=== PATIENT | female | born 1970 | race Caucasian/White ===

== ENCOUNTER 2016-10-02 20:41 | Emergency (ER) | payer OTHER ==
--- NOTE | ~2016-10-02 | CR72 ---
[facility] A Service of [facility] RADIOLOGY TEXT RESULTS PATIENT: SCOOTER BRITO LOCATION: [facility] : [birth year] UNIT #: [id number] AGE: [address]: Brice Hilton MD SEX: F ORDER DR: [id number] [facility] [address] [place], [place] [address] [id number] E MR#: [id number] Acc #: [id number] NAME: SCOOTER BRITO : 1970 SEX: F STUDY DATE/TIME: 10/02/2016 20:38 UNIT: [facility] ROOM: STUDY DESCRIPTION: CR Chest Single View Portable Attending Physician: Brice Hilton M.D. Ordering Physician: Brice Hilton M.D. Primary Care Physician: Primary Care Physician No MEDICAL IMAGING REPORT This report is preliminary unless electronic signature is present EXAM Portable chest. HISTORY Shortness of air, heart palpitations and weakness for 2 years, worse today. FINDINGS The cardiac size and pulmonary vascularity are normal. No infiltrates or effusions. Mild hyperinflation of both lungs. IMPRESSION No acute findings and no active disease. Dictated by... Angel Traore M.D. THIS IS AN ELECTRONICALLY VERIFIED REPORT Angel Traore M.D. at 10/03/2016 8:02 PM SARIKA/kylah TD: 10/02/2016 23:28 JOB #: [id number] MEDICAL IMAGING REPORT Page 1 of 1 COPY
--- NOTE | ~2016-10-02 | EKG ---
PATIENT: SCOOTER BRITO UNIT #: [id number] Ventricular Rate: 84 BPM Atrial Rate: 84 BPM P-R Interval: 176 ms QRS Duration: 72 ms Q-T Interval: 408 ms QTC Calculation(Bezet): 482 ms P [place]: 62 degrees Calculated R [place]: 51 degrees Calculated T [place]: 58 degrees Diagnosis Line: Normal sinus rhythm Diagnosis Line: Normal ECG Diagnosis Line: No previous ECGs available Diagnosis Line: Confirmed by MARTHA DIAZ MD ([id number]) on Diagnosis Line: 10/03/2016 7:17:55 AM INTERPRETING MD: GHASSAN
[2016-10-02 20:37] LABS: BASOPHIL# 0.1 X10e3 (0-0.3); BASOPHIL% 1.4 % (0-2.5); EOSINOPHIL# 0.4 X10e3 (0-0.7); EOSINOPHIL% 5.4 % (0.0-7.0); HEMATOCRIT 35.8 % (35.0-45.0); HEMOGLOBIN 11.5 gm/dL (12.0-16.0); LYMPHOCYTE# 2.5 X10e3 (1.0-3.5); LYMPHOCYTE% 34.5 % (17.0-45.0); MEAN CELL VOLUME 94.5 FL (83-96); MEAN CORPUSCULAR HEMOGLOBIN 30.2 PG (28-34); MEAN PLATELET VOLUME 7.4 FL (6.5-11.5); MONOCYTE# 0.6 X10e3 (0-1.0); MONOCYTE% 8.6 % (3.0-12.0); NEUTROPHIL# 3.6 X10e3 (1.5-7.1); NEUTROPHIL% 50.1 % (40-75); PLATELET COUNT 239 X10e3 (140-420); RED BLOOD COUNT 3.79 X10e (3.90-5.30); RED CELL DISTRIBUTION WIDTH 16.9 % (11.0-15.5); WHITE BLOOD COUNT 7.3 X10e3 (4.0-10.5)
[2016-10-02 20:40] LABS: DIFF IND NO
[2016-10-02 20:46] LABS: POC - CKMB <1.0 ng/mL (0.0-7.9); POC - TROPONIN <0.05 ng/mL (<=0.05)
[2016-10-02 20:53] LABS: URINE SOURCE CLEAN CATCH
[2016-10-02 20:59] LABS: ALBUMIN SERUM 4.1 g/dL (3.5-5.0); ALKALINE PHOSPHATASE 66 U/L (32-92); ALT (SGPT) 22 U/L (10-40); AST (SGOT) 24 U/L (10-42); BILIRUBIN,TOTAL 0.3 mg/dL (0.2-2.0); BLOOD UREA NITROGEN 12 mg/dL (9-23); CALCIUM SERUM 9.3 mg/dL (8.4-10.2); CARBON DIOXIDE 25 mmol/L (22-31); CHLORIDE 106 mmol/L (100-111); GLOM FILT RATE Estimated 67.5 mL/min (>60); GLUCOSE FASTING 80 mg/dL (70-110); MAGNESIUM 2.1 mg/dL (1.6-3.0); POTASSIUM 3.5 mmol/L (3.5-5.1); PROTEIN TOTAL SERUM 7.2 g/dL (6.0-8.3); SODIUM 139 mmol/L (135-145)
[2016-10-02 21:00] LABS: URINE APPEARANCE CLEAR; URINE BILIRUBIN NEG (NEG); URINE BLOOD NEG (NEG); URINE COLOR DK YELLOW; URINE GLUCOSE NEG (NEG); URINE KETONE NEG (NEG); URINE LEUKOCYTE ESTERASE NEG (NEG); URINE NITRATE NEG (NEG); URINE PROTEIN NEG (NEG); URINE SPECIFIC GRAVITY 1.021 (1.003-1.035); URINE UROBILINOGEN 0.2 MG/DL (NEG)
[2016-10-02 21:00] LABS: BILIRUBIN, DIRECT <0.1 mg/dL (0.0-0.2); BILIRUBIN,INDIRECT 0.2 mg/dL (0.0-0.9)
[2016-10-02 21:04] LABS: CULTURE INDICATED? NO
[2016-10-02 21:08] LABS: AMPHETAMINE NEG (NEG); BARBITURATES NEG (NEG); BENZODIAZEPINES NEG (NEG); COCAINE NEG (NEG); MARIJUANA NEG (NEG); OPIATES NEG (NEG); TRICYCLIC ANTIDEPRESSANTS NEG (NEG); U METHADONE NEG (NEG)
== END 2016-10-02 21:42 | disposition home or self-care (01) ==
LOC: CED 20:41
PROVIDERS: Emergency Medicine
DX: R00.2 Palpitations (principal); J44.9 Chronic obstructive pulmonary disease, unspecified; K75.9 Inflammatory liver disease, unspecified; K74.60 Unspecified cirrhosis of liver; I50.9 Heart failure, unspecified; Z88.8 Allergy status to other drugs, medicaments and biological substances
CPT/HCPCS: 36415; 71010; 80048; 80076; 80307; 81003; 82553; 83735; 84443; 84484; 84703; 85025; 93005; 99283

== ENCOUNTER 2016-11-17 13:00 | Inpatient (IN) | payer OTHER ==
--- NOTE | ~2016-11-17 | PN ---
Unit #: [id number] #: [id number] Patient: SCOOTER BRITO [id number] [facility] [address] [place] [address] [id number] I MR#: [id number] NAME: SCOOTER BRITO ROOM: P208 Age: 46 Sex: F Admission Date: 11/17/2016 : 1970 Attending Physician: Jose Luis Hart M.D. Admitting Physician: Jose Luis Hart M.D. Primary Care Physician: Primary Care Physician Svitlana PACK NOTES DATE 11/22/2016 DISCUSSION Ms. Brito is a 46-year-old white female who was seen today and chart was reviewed and case was discussed with the staff. She has been anxious, withdrawn and rather seclusive to herself. Meanwhile, she has been cooperative with treatment recommendations. She has been taking the medications and tolerating them fairly well with no reported side effects. MENTAL STATUS EXAMINATION Middle-aged white female who was casually dressed with fair personal hygiene, appears to be in no acute distress or discomfort. She was awake and alert on interaction with intact orientation. Her mood was anxious with congruent affect. She denies any suicidal or homicidal ideations. Her insight and judgement remains slightly impaired. TREATMENT PLAN We will continue her on her current treatment protocol. We will monitor her response and make further adjustments as needed. Dictated by... Bonnie Griffin/zee TD: 11/23/2016 00:51 JOB #: [id number] [facility] PROGRESS NOTES Page 1 of 1 X Jose Luis Hart MD PROGRESS NOTE
--- NOTE | ~2016-11-17 | PN ---
Unit #: [id number] #: [id number] Patient: SCOOTER BRITO [id number] [facility] [address] [place] [address] [id number] I MR#: [id number] NAME: SCOOTER BRITO ROOM: P208 Age: 46 Sex: F Admission Date: 11/17/2016 : 1970 Attending Physician: Jose Luis Hart M.D. Admitting Physician: Jose Luis Hart M.D. Primary Care Physician: Primary Care Physician Svitlana PACK NOTES DATE OF SERVICE 11/17/2016 DISCUSSION Ms. Brito is a 46-year-old white female with mood disorder who was seen today. Chart was reviewed and case was discussed with the staff. She has been anxious, withdrawn, depressed, and rather seclusive to herself. Meanwhile, she has not shown any agitation or aggression and rather has been cooperative with treatment recommendations and reports that she has been started on Prozac in the past and would like to get back on that medication but that she also needs mood stabilizer to help with her anger and aggression. MENTAL STATUS EXAMINATION Middle-aged white female who is casually dressed with fair personal hygiene, appears to be in no acute distress or discomfort. She was awake and alert on interaction with intact orientation. Her mood is anxious with a congruent affect. She denies any suicidal or homicidal ideations. Her insight and judgment remain slightly impaired. TREATMENT PLAN 1. We will continue her on her current medications and treatment protocol. We will monitor her response to the medications and make further adjustments as needed. 2. We will continue to follow up. Dictated by... Bonnie Griffin/yarely TD: 11/19/2016 07:04 JOB #: [id number] Unit #: [id number] #: [id number] Patient: SCOOTER BRITO HARMANJERRY PROGRESS NOTES Page 1 of 1 X Jose Luis Hart MD PROGRESS NOTE
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
--- NOTE | ~2016-11-17 | DS ---
Unit #: [id number] #: [id number] Patient: [facility]CO[facility]ER BRITO [id number] [facility] [address] [place] [address] [id number] I MR#: [id number] NAME: SCOOTER BRITO ROOM: P208 Age: 46 Sex: F Admission Date: 11/17/2016 : 1970 Discharge Date: 11/23/2016 Attending Physician: Jose Luis Hart M.D. Primary Care Physician: Primary Care Physician No DISCHARGE SUMMARY IDENTIFYING DATA Ms. Brito is a 46-year-old white female who was self-referred to the hospital on a voluntary basis. DISCHARGE DIAGNOSES Psychiatric: Alcohol dependence, moderate and acute withdrawals; bipolar disorder, most recent episode depressed, recurrent, moderate, without psychotic features. Medical: Hepatitis C, congestive heart failure, supraventricular tachycardia, history of lupus. Stressors: Moderate psychosocial stressors. HISTORY OF PRESENT ILLNESS Please see initial psychiatric evaluation for details. PAST PSYCHIATRIC HISTORY Please see initial psychiatric evaluation for details. PAST MEDICAL HISTORY Please see initial psychiatric evaluation for details. HOSPITAL COURSE The patient was admitted to the adult psychiatric unit at [facility] and was oriented to the hospital environment. Routine p.r.n. medications were initiated, and she was started on alcohol detox protocol and was closely monitored. However, she was complaining of persistent mood swings, anger, aggression, and depressive symptoms and as such, mood stabilizers and antidepressants were adjusted and she was closely monitored. She was taking the medications regularly and was tolerating them fairly well and was able to show a decent therapeutic response with improvement in depression and anxiety and was denying any further suicidal ideations, intent, or plan and was not seen to be a danger to self or anyone else and was willing to continue treatment on an outpatient basis, and as such, it was decided that she will be discharged home and will continue treatment on an outpatient basis. DISCHARGE MEDICATIONS Wellbutrin XL 150 mg in the morning for depression, Seroquel 50 mg at bedtime for bipolar, Depakote 500 mg b.i.d. for bipolar, and Prozac 20 mg a day for bipolar. DISCHARGE CONDITION Stable. Unit #: [id number] #: [id number] Patient: SCOOTER BRITO PROGNOSIS Fair. Dictated by... IrfBonnie Duque/leila TD: 11/23/2016 06:43 JOB #: [id number] DISCHARGE SUMMARY Page 1 of 1 X Jose Luis Hart MD DISCHARGE SUMMARY
--- NOTE | ~2016-11-17 | PN ---
Unit #: [id number] #: [id number] Patient: SCOOTER BRITO [id number] [facility] [address] [place] [address] [id number] I MR#: [id number] NAME: SCOOTER BRITO ROOM: P208 Age: 46 Sex: F Admission Date: 11/17/2016 : 1970 Attending Physician: Jose Luis Hart M.D. Admitting Physician: Jose Luis Hart M.D. Primary Care Physician: Primary Care Physician Svitlana PACK NOTES DATE November 20, 2016 DISCUSSION Ms. Brito is a 26-year-old white female, with mood disorder, who was seen today and chart was reviewed and the case was discussed with the staff. The patient has been anxious, withdrawn, and rather seclusive to herself. Meanwhile, she has been cooperative with the treatment recommendations and she has been taking the medications and tolerating them fairly well. MENTAL STATUS EXAMINATION Middle-aged white female, who was casually dressed with fair personal hygiene and appears to be in no acute distress or discomfort. The patient was awake and alert on interaction with intact orientation. Her mood is anxious with a congruent affect. The patient denies any suicidal or homicidal ideations. Her insight and judgment remain slightly impaired. TREATMENT PLAN 1. We will continue her on her current treatment protocol, and will monitor her response, and make further adjustments as needed. 2. We will continue to followup. Dictated by... Bonnie Griffin/malathi TD: 11/21/2016 11:08 JOB #: [id number] [facility] PROGRESS NOTES Page 1 of 1 X Jose Luis Hart MD PROGRESS NOTE
--- NOTE | ~2016-11-17 | HP ---
Unit #: [id number] #: [id number] Patient: CINTHYA BRITO [id number] [place] [address] [id number] I MR#: [id number] NAME: CINTHYA BRITO ROOM: P208 Age: 46 Sex: F Admission Date: 11/17/2016 : 1970 Attending Physician: Jose Luis Hart M.D. Admitting Physician: Jose Luis Hart M.D. Primary Care Physician: Primary Care Physician No HISTORY AND PHYSICAL HISTORY OF PRESENT ILLNESS Cinthya is a 46 year old admitted to [address] [place] [address] because of her abuse of alcohol. PAST MEDICAL HISTORY 1. Long history of alcohol abuse. 2. History of withdrawal seizures. PAST SURGICAL HISTORY 1. Cervical disc. 2. Sinus. 3. x1. ALLERGIES Vistaril, Thorazine, Celebrex. SOCIAL HISTORY She does not smoke. Drinks up to a half gallon of vodka on a daily basis and admits to using marijuana. FAMILY HISTORY Medically noncontributory. REVIEW OF SYSTEMS CONSTITUTIONAL: No fever or chills. HEENT: Denies any sore throat, ear pain or runny nose. CARDIOVASCULAR: Denies chest pain, irregular heart rhythm or palpitations. CHEST: Denies shortness of breath or cough. No hemoptysis. GASTROINTESTINAL: Denies nausea, vomiting, diarrhea or chronic constipation. ENDOCRINE: Denies history of increased thirst or urination. No recent significant weight loss or gain. GENITOURINARY: Denies dysuria, frequency, or hematuria. SKIN: Denies any rashes. HEMATOLOGIC: Denies history of increased bleeding or bruising. MUSCULOSKELETAL: Denies any hot, swollen joints. No generalized muscle pain. NEUROLOGIC: Denies problems with vision or speech. No frequent, severe headaches. No numbness, tingling or weakness in any extremities. Denies loss of bladder or bowel control. CURRENT MEDICATIONS 1. Detox protocol. Unit #: [id number] #: [id number] Patient: CINTHYA BRITO 2. Prozac 20 mg daily. 3. Depakote 500 mg b.i.d. PHYSICAL EXAMINATION GENERAL: Alert, well-nourished, in no apparent distress. VITAL SIGNS: Blood pressure 115/80, heart rate 80, respirations 16, temperature 98.6. WEIGHT: 155. HEIGHT: 5 feet 10 inches. SKIN: Warm and dry without rash or lesion. HEENT: Normocephalic. TMs not viewed. Oral and nasal passages clear. Conjunctivae clear. PERRLA. EOMs intact. NECK: Supple without lymphadenopathy or thyromegaly. HEART: Regular rate and rhythm without murmur. LUNGS: Clear. ABDOMEN: Soft, nontender. : Not done. EXTREMITIES: No evidence of cyanosis, clubbing or edema. Moves all without focal deficit. NEUROLOGICAL: Grossly within normal limits. Cranial Nerves: II: Visual brooks are intact. III, IV AND : Extraocular movements are intact. Pupils are equal, round and reactive to light. V: Facial sensation is grossly normal. VII: Facial movements and expression are normal. VIII: Auditory acuity grossly intact. IX, X: Uvula is midline. Phonation is normal. XI: Patient shrugs shoulders and turns head normally. XII: Tongue protrudes in the midline. Sensory and Motor Function: Sensory and motor sensation is grossly normal. Motor: moves all extremities well. Coordination: Gait is normal. Deep Tendon Reflexes: Intact. IMPRESSION Psychiatric admission. RECOMMENDATIONS PSYCHIATRIC: Per psychiatrist. MEDICAL: See no contraindications to participate in facility's activities. MEDICAL PROGNOSIS Good. MEDICAL CONDITION Stable. Dictated by... Agnieszka JosephALaureen-Vanessa. for Bonnie Weaver/escobar TD: 11/18/2016 18:09 JOB #: [id number] Unit #: [id number] #: [id number] Patient: CINTHYA BRITO HISTORY AND PHYSICAL Page 1 of 1 X Aide Wood HISTORY AND PHYSICAL
--- NOTE | ~2016-11-17 | PN ---
Unit #: [id number] #: [id number] Patient: SCOOTER BRITO [id number] [facility] [address] [place] [address] [id number] I MR#: [id number] NAME: SCOOTER BRITO ROOM: P208 Age: 46 Sex: F Admission Date: 11/17/2016 : 1970 Attending Physician: Jose Luis Hart M.D. Admitting Physician: Jose Luis Hart M.D. Primary Care Physician: Primary Care Physician Svitlana PACK NOTES DATE OF SERVICE: 11/21/2016 SUBJECTIVE Ms. Brito is a 46-year-old white female who was seen today and chart was reviewed and case was discussed with the staff. She remains anxious, withdrawn, and rather seclusive to herself. Meanwhile, she has been cooperative with treatment recommendations and has been taking the medications and tolerating them fairly well with no reported side effects. MENTAL STATUS EXAMINATION Middle aged white female, who is casually dressed with fair personal hygiene, appears to be in no acute distress or discomfort. She was awake and alert on interaction with intact orientation. Her mood was anxious. Her insight and judgment remained slightly impaired. TREATMENT PLAN 1. We will continue her on her current medications and treatment protocol. We will monitor her response to the medications and make further adjustments as needed. 2. We will continue to follow up. Dictated by... Bonnie Griffin/leila TD: 11/21/2016 15:30 JOB #: [id number] [facility] PROGRESS NOTES Page 1 of 1 X Jose Luis Hart MD PROGRESS NOTE
[2016-11-18 09:36] LABS: BASOPHIL# 0.1 X10e3 (0-0.3); BASOPHIL% 1.5 % (0-2.5); EOSINOPHIL# 0.1 X10e3 (0-0.7); EOSINOPHIL% 1.3 % (0.0-7.0); HEMATOCRIT 38.3 % (35.0-45.0); HEMOGLOBIN 12.5 gm/dL (12.0-16.0); LYMPHOCYTE# 1.3 X10e3 (1.0-3.5); LYMPHOCYTE% 31.5 % (17.0-45.0); MEAN CELL VOLUME 99.2 FL (83-96); MEAN CORPUSCULAR HEMOGLOBIN 32.2 PG (28-34); MEAN CORPUSCULAR HGB CONC 32.5 g/dL (30-36); MEAN PLATELET VOLUME 7.2 FL (6.5-11.5); MONOCYTE# 0.8 X10e3 (0-1.0); MONOCYTE% 17.9 % (3.0-12.0); NEUTROPHIL% 47.8 % (40-75); PLATELET COUNT 304 X10e3 (140-420); RED BLOOD COUNT 3.87 X10e (3.90-5.30); RED CELL DISTRIBUTION WIDTH 20.3 % (11.0-15.5); WHITE BLOOD COUNT 4.2 X10e3 (4.0-10.5)
[2016-11-18 09:39] LABS: DIFF IND NO
[2016-11-18 09:50] LABS: URINE APPEARANCE CLOUDY; URINE BILIRUBIN NEG (NEG); URINE BLOOD NEG (NEG); URINE COLOR YELLOW; URINE GLUCOSE NEG (NEG); URINE KETONE NEG (NEG); URINE LEUKOCYTE ESTERASE 2+ (NEG); URINE NITRATE POS (NEG); URINE PROTEIN NEG (NEG); URINE SPECIFIC GRAVITY 1.019 (1.003-1.035)
[2016-11-18 09:58] LABS: URBCS1 AUWI 0-2 /[HPF] (0-2); URINE BACTERIA AUWI 4+ (NEGATIVE); URINE SQUAMOUS EPITHELIAL CELL OCC /[HPF]; UWBCS1 AUWI 25-50 (0-5)
[2016-11-18 10:54] LABS: AMPHETAMINE POS (NEG); BARBITURATES NEG (NEG); BENZODIAZEPINES POS (NEG); COCAINE NEG (NEG); MARIJUANA POS (NEG); OPIATES NEG (NEG); TRICYCLIC ANTIDEPRESSANTS NEG (NEG); U METHADONE NEG (NEG)
[2016-11-18 12:37] LABS: ALBUMIN SERUM 4.2 g/dL (3.5-5.0); BILIRUBIN,TOTAL 1.1 mg/dL (0.2-2.0); BUN/CREATININE RATIO 16.25; CALCIUM SERUM 9.2 mg/dL (8.4-10.2); CREATININE SERUM 0.8 mg/dL (0.6-1.4); GLOM FILT RATE Estimated 88.5 mL/min (>60); POTASSIUM 4.1 mmol/L (3.5-5.1); PROTEIN TOTAL SERUM 7.3 g/dL (6.0-8.3)
[2016-11-24 13:35] LABS: HA AB IGM (HEPPAN) Nonreactive (()); HB CORE AB IGM (HEPPAN) Nonreactive (Nonreactive); HB S AG (HEPPAN) Nonreactive (Nonreactive); HEP C AB (HEPPAN) Reactive (Nonreactive)
== END 2016-11-23 10:25 | disposition home or self-care (01) | DRG 897 ==
LOC: P2S 16:09 → POF 16:09 → P2S 16:19
PROVIDERS: Psychiatry & Neurology Psychiatry
PROC: HZ2ZZZZ Detoxification Services for Substance Abuse Treatment (ICD-10-PCS; principal; 2016-11-18)
DX: F10.10 Alcohol abuse, uncomplicated (principal)
CPT/HCPCS: 80053; 80074; 80307; 81003; 85025; 86592; 87522; 87806

== ENCOUNTER 2017-02-11 11:48 | Emergency (ER) | payer OTHER ==
[~2017-02-11] VITALS: Ht 177.8 cm; Wt 73.9 kg
--- NOTE | ~2017-02-11 | US140 ---
[facility] A Service of [facility] RADIOLOGY TEXT RESULTS PATIENT: SCOOTER BRITO LOCATION: [facility] : [birth year] UNIT #: [id number] AGE: [address]: Franck Pedraza MD SEX: F ORDER DR: [id number] [facility] [address] [place], [place] [address] [id number] MR#: [id number] Acc #: [id number] NAME: SCOOTER BRITO : 1970 SEX: F STUDY DATE/TIME: 02/11/2017 13:26 UNIT: [facility] ROOM: STUDY DESCRIPTION: [facility] [employer] Attending Physician: Franck Pedraza M.D. Ordering Physician: Franck Pedraza M.D. Primary Care Physician: Primary Care Physician No MEDICAL IMAGING REPORT This report is preliminary unless electronic signature is present EXAM Left upper extremity venous duplex 02/11/2017 HISTORY Left arm pain and edema beginning one day ago after surgery. Evaluate for deep vein thrombosis. FINDINGS García-scale images of the left upper extremity were obtained as well as Doppler waveform spectral analysis and color flow duplex imaging. There is normal blood flow and compressibility in the left internal jugular vein as well as the left subclavian, axillary, brachial, cephalic and basilic veins. There is no evidence of deep vein thrombosis in the left upper extremity. IMPRESSION Negative left upper extremity venous duplex with no evidence of deep vein thrombosis. Dictated by... Husam Boswell M.D. THIS IS AN ELECTRONICALLY VERIFIED REPORT Husam Boswell M.D. at 02/13/2017 6:39 AM MARCIAL/shikha TD: 02/12/2017 00:14 JOB #: [id number] MEDICAL IMAGING REPORT [facility] A Service [facility] RADIOLOGY TEXT RESULTS PATIENT: SCOOTER BRITO LOCATION: [facility] : [birth year] UNIT #: [id number] AGE: [address]: Franck Pedraza MD SEX: F ORDER DR: Page 1 of 1 COPY
== END 2017-02-11 14:17 | disposition home or self-care (01) ==
LOC: CED 11:48
DX: G89.18 Other acute postprocedural pain (principal); M79.622 Pain in left upper arm; Z88.1 Allergy status to other antibiotic agents; Z88.8 Allergy status to other drugs, medicaments and biological substances
CPT/HCPCS: 93971; 99284